=== PATIENT | female | born 1950 ===

== ENCOUNTER 2024-07-25 12:30 | Inpatient (IN) | payer OTHER ==
[~2024-07-25] VITALS: Ht 61 cm; Wt 95.3 kg
[2024-07-25 15:23] LABS: COVID-19 AG NEGATIVE (NEGATIVE)
[2024-07-25] MEDS ORDERED: SYNTHROID112 MCG PO (15:33)
[2024-07-25] MEDS ORDERED: XARELTO20 MG (15:33)
[2024-07-25] MEDS ORDERED: ZESTRIL40 M1 PO (15:33)
[2024-07-25] MEDS ORDERED: HORIZANT600 MG (15:34)
[2024-07-25] MEDS ORDERED: CELEXA10 MG PO (15:34)
[2024-07-25 15:36] VITALS: BP 147/78
[2024-07-30] MEDS ORDERED: CEFAZOLIN SODIUM 1,000 MG VIAL ONE (08:38)
[2024-07-30] MEDS ORDERED: VANCOMYCIN HCL 1,000 MG VIAL ONE ×2 (08:38→12:06)
[2024-07-30] MEDS ORDERED: PERCOCET 5-3251 EACH PO (09:59)
[2024-07-30] MEDS ORDERED: COLACE100 MG PO (09:59)
[2024-07-30] MEDS ORDERED: MEDROLPACK PO (09:59)
[2024-07-30] MEDS ORDERED: ZOFRAN8 MG PO (10:00)
[2024-07-30] MEDS ORDERED: METHYLPREDNISOLONE SOD SUCC 125 MG VIAL ONE ×2 (10:12→13:37)
[2024-07-30] MEDS ORDERED: 0.9 % SODIUM CHLORIDE 1,000 ML IV SCH (10:15)
[2024-07-30] MEDS ORDERED: PROMETHAZINE HCL 50 MG/ML AMPUL IM PRN (10:15)
[2024-07-30] MEDS ORDERED: ENALAPRILAT DIHYDRATE 1.25 MG/ML VIAL IV PRN (10:15)
[2024-07-30] MEDS ORDERED: HEMOSTATIC MATRIX WITH THROMBIN KIT TOP ONE (10:20)
[2024-07-30] MEDS ORDERED: TRANEXAMIC ACID 100MG/1ML (1000MG) AMPUL IV ONE ×2 (11:52→13:50)
[2024-07-30] MEDS ORDERED: ENALAPRILAT DIHYDRATE 1.25 MG/ML VIAL IV ONE (12:15)
[2024-07-30] MEDS ORDERED: METHYLENE BLUE 50MG/10ML AMP IV ONE (12:23)
[2024-07-30] MEDS ORDERED: MORPHINE SULFATE 4 MG/ML CARTRIDGE IV SCH (13:00)
[2024-07-30] MEDS ORDERED: METHYLPREDNISOLONE ACETATE 80 MG/ML VIAL ONE (13:44)
[2024-07-30] MEDS ORDERED: hydrALAZINE HCL 20 MG VIAL ONE (14:18)
[2024-07-30] MEDS ORDERED: METHYLPREDNISOLONE SOD SUCC 125 MG VIAL IV SCH (17:00)
[2024-07-30] MEDS ORDERED: DOCUSATE SODIUM 100MG CAP PO SCH (17:00)
[2024-07-30] MEDS ORDERED: FAMOtidine 20 MG TABLET PO SCH (17:00)
[2024-07-30] MEDS ORDERED: CEFAZOLIN SODIUM 1,000 MG in 0.9 % SODIUM CHLORIDE 50 ML IV SCH (17:00)
[2024-07-30 19:32] VITALS: BP 147/78; O2SAT 95
[2024-07-30] MEDS ORDERED: ACETAMINOPHEN 500 MG GEL..CAP PO SCH (20:00)
[2024-07-30] MEDS ORDERED: HALOPERIDOL 0.5 MG TABLET PO SCH (21:00)
[2024-07-30] MEDS ORDERED: VANCOMYCIN HCL 1,000 MG VIAL IV SCH (21:00)
[2024-07-30] MEDS ORDERED: ALBUTEROL SULFATE 3 ML/2.5 MG AMPUL.NEB IH ONE (22:51)
[2024-07-31] MEDS ORDERED: SODIUM CHLORIDE 0.45 % 1,000 ML IV SCH
[2024-07-31] MEDS ORDERED: ALBUTEROL SULFATE 3 ML/2.5 MG AMPUL.NEB IH STA (00:01)
[2024-07-31 00:22] VITALS: BP 172/74; O2SAT 97
[2024-07-31] MEDS ORDERED: ALBUTEROL SULFATE 3 ML/2.5 MG AMPUL.NEB IH SCH (01:00)
[2024-07-31 01:20] VITALS: BP 134/81; O2SAT 99
[2024-07-31] MEDS ORDERED: LEVOTHYROXINE SODIUM 112 MCG TABLET PO SCH (06:00)
[2024-07-31] MEDS ORDERED: OxyCODONE HCL 5 MG TABLET (ROXICODONE) PO PRN (06:01)
[2024-07-31] MEDS ORDERED: VANCOMYCIN HCL 1,000 MG VIAL ONE ×2 (06:02→15:45)
[2024-07-31 08:16] VITALS: BP 165/71; O2SAT 99
[2024-07-31 08:23] LABS: CHOL HDL RATIO 2.4 (0-5.0)
[2024-07-31] MEDS ORDERED: TAMSULOSIN HCL 0.4 MG CAP PO SCH (09:00)
[2024-07-31] MEDS ORDERED: LISINOPRIL 40 MG TABLET PO SCH (09:00)
[2024-07-31 13:30] VITALS: BP 130/72
[2024-07-31 23:17] VITALS: BP 153/72; O2SAT 89
[2024-08-01 01:35] VITALS: BP 187/79; O2SAT 97
[2024-08-01 08:46] VITALS: BP 193/69; O2SAT 95
[2024-08-01 16:03] VITALS: BP 186/104; O2SAT 96
== END 2024-08-01 20:42 | disposition home or self-care (01) | DRG 430 ==
LOC: O/R 07-30 05:56 → SURH 07-30 10:15 → PED 07-30 16:51 → SURG 07-31 01:20
PROVIDERS: ADMIT Orthopaedic Surgery Orthopaedic Surgery of the Spine; ATTEND Orthopaedic Surgery Orthopaedic Surgery of the Spine
PROC: 0RG2071 Fusion of 2 or more Cervical Vertebral Joints with Autologous Tissue Substitute, Posterior Approach, Posterior Column, Open Approach (ICD-10-PCS; 2024-07-30)
PROC: 0RT30ZZ Resection of Cervical Vertebral Disc, Open Approach (ICD-10-PCS; 2024-07-30)
PROC: 0PB40ZZ Excision of Thoracic Vertebra, Open Approach (ICD-10-PCS; 2024-07-30)
PROC: 07DS0ZZ Extraction of Vertebral Bone Marrow, Open Approach (ICD-10-PCS; 2024-07-30)
PROC: 4A1104G Monitoring of Peripheral Nervous Electrical Activity, Intraoperative, Open Approach (ICD-10-PCS; 2024-07-30)
PROC: 0RG20A0 Fusion of 2 or more Cervical Vertebral Joints with Interbody Fusion Device, Anterior Approach, Anterior Column, Open Approach (ICD-10-PCS; principal; 2024-07-30 10:15)
DX: M50.023 Cervical disc disorder at C6-C7 level with myelopathy (principal); M50.021 Cervical disc disorder at C4-C5 level with myelopathy; M50.022 Cervical disc disorder at C5-C6 level with myelopathy; I10 Essential (primary) hypertension; E03.9 Hypothyroidism, unspecified